=== PATIENT | female | born 1945 | race Caucasian/White ===

== ENCOUNTER 2017-08-12 18:36 | Inpatient (IN) | payer MEDICARE ==
[~2017-08-12] VITALS: Ht 172.7 cm; Wt 82.0 kg
[2017-08-12] MEDS ORDERED: SUCCINYLCHOLINE CHLORIDE 20 MG/ML 10ML VIAL IV ONE ×3 (18:56→19:15)
[2017-08-12] MEDS ORDERED: FUROSEMIDE 40 MG/4 ML VIAL ONE (18:56)
[2017-08-12] MEDS ORDERED: ETOMIDATE (2MG/ML) 20ML VIAL IV ONE ×3 (18:56→19:15)
[2017-08-12] MEDS ORDERED: FUROSEMIDE 40 MG/4 ML VIAL IV ONE (18:56)
[2017-08-12] MEDS ORDERED: NITROGLYCERIN 0.4 MG SL TAB SL ONE ×2 (18:59)
[2017-08-12] MEDS ORDERED: NITROGLYCERIN 50MG/250ML 250 ML IV ONE (19:16)
[2017-08-12] MEDS ORDERED: ENALAPRILAT 1.25 MG/ML-1ML VIAL IV ONE (19:19)
[2017-08-12] MEDS: NOREPINEPHRINE 8 MG/250ML KIT 250 ML IV ONE ×2 (19:20→19:37)
[2017-08-12] MEDS: DOBUTamine 1000MCG/ML 250 ML IV ONE ×2 (19:22→19:26)
[2017-08-12] MEDS: DOBUTamine 1000MCG/ML 250 ML IV SCH (19:26)
[2017-08-12] MEDS: NOREPINEPHRINE 8 MG/250ML KIT 250 ML IV SCH (19:37)
[2017-08-12] MEDS: MIDAZOLAM DRIP 50 mg/50mL 50 ML IV SCH ×2 (20:00→23:37)
[2017-08-12 20:04] LABS: Basophils # (auto) 0.1 uL; Basophils % (auto) 0.4 % (0.0-2.0); Eosinophils # (auto) 0.3 uL; Hemoglobin 17.4 g/dL (12.2-16.2); Lymphocytes % (auto) 30.7 % (10.0-50.0); Monocytes # (auto) 1.3 uL; White Blood Cell 16.3 10^3/uL (4.4-10.8)
[2017-08-12 20:05] LABS: Eosinophils % (auto) 2.1 % (0.0-7.0); Hematocrit 53.9 % (36.0-46.0); Mean Corpuscular Hemoglobin 32.3 pg (28.0-32.0); Mean Corpuscular Hgb Conc. 32.4 g/dL (32.0-36.0); Mean Corpuscular Volume 99.7 fL (80.0-100.0); Monocytes % (auto) 8.1 % (0.0-12.0); Neutrophils # (auto) 9.6 uL; Neutrophils % (auto) 58.7 % (37.0-80.0); Nucleated Red Blood Cells % 0.1 %; Platelet Count (auto) 197 10^3/uL (140-450)
[2017-08-12 20:22] LABS: INR 0.93 (0.9-1.15); Partial Thromboplastin Time 32.3 sec (23.78-33.04)
[2017-08-12 20:33] LABS: Alanine Aminotransferase 57 U/L (13-56); Alkaline Phosphatase 72 U/L (45-117); Anion Gap 14 (5-15); Aspartate Aminotransferase 50 U/L (15-37); BUN/Creatinine Ratio 21.8; Bilirubin, Total 0.4 mg/dL (0.2-1.0); Blood Urea Nitrogen 29 mg/dL (7-18); Calcium 8.7 mg/dL (8.5-10.1); Carbon Dioxide 18 mmol/L (21-32); Chloride 109 mmol/L (98-107); GFR African American 51 mL/min; GFR Non-African American 42 mL/min; Glucose 312 mg/dL (74-106); Sodium 141 mmol/L (136-145)
[2017-08-12 20:34] LABS: Albumin 3.7 g/dL (3.4-5.0); Potassium 5.5 mmol/L (3.5-5.1); Total Protein 8.6 g/dL (6.4-8.2)
[2017-08-12] MEDS ORDERED: IOHEXOL 350 MG/ML 100ML IJ ONE (20:42)
[2017-08-12] MEDS ORDERED: PIPERACILLIN-TAZO 4.5GM 100 ML IV ONE (22:15)
[2017-08-12] MEDS ORDERED: CLINDAMYCIN 900MG IV 50 ML IV ONE (22:15)
[2017-08-12] MEDS ORDERED: SODIUM CHLORIDE 0.9% 1,000 ML IV ONE (22:30)
[2017-08-12] MEDS ORDERED: InsuLIN REG 1unit/0.01ml Soln (100units/ml) IV ONE (23:30)
[2017-08-13] VITALS (13 sets, daily range): BP systolic 99–126; BP diastolic 17–86
[2017-08-13] MEDS: SODIUM CHLORIDE 0.9% 1,000 ML IV SCH ×2 (00:47→20:01)
[2017-08-13] MEDS ORDERED: DEXTROSE (50%) 50ML SYRG IV PRN (01:00)
[2017-08-13] MEDS ORDERED: ALBUTEROL SULF 2.5 MG/0.5ML(0.5%) NEB SOLN NEB PRN (01:00)
[2017-08-13] MEDS ORDERED: ONDANSETRON HCL 4 MG/2 ML VIAL IV PRN (01:00)
[2017-08-13] MEDS ORDERED: NITROGLYCERIN 0.4 MG SL TAB SL PRN (01:00)
[2017-08-13] MEDS ORDERED: VANCOMYCIN PER PHARMACY 0 MG IV SCH (01:00)
[2017-08-13] MEDS ORDERED: VANCOMYCIN 1GM/250ML 250 ML IV ONE (01:30)
[2017-08-13 01:38] LABS: Potassium 5.5 mmol/L (3.5-5.1)
[2017-08-13 01:46] LABS: Lactic Acid w/Reflex 3.5 mmol/L (0.4-2.0)
[2017-08-13] MEDS: PIPERACILLIN-TAZOB 3.375GM 100 ML IV SCH ×3 (06:00→18:20)
[2017-08-13] MEDS: ACCU-CHEK COMFORT CURVE STRIP VI SCH ×3 (06:00→18:20)
[2017-08-13] MEDS: InsuLIN REG 1unit/0.01ml Soln (100units/ml) SC SCH ×3 (06:00→18:20)
[2017-08-13] MEDS: ASPirin 81 mg TAB PO SCH (10:00)
[2017-08-13] MEDS: PANTOPRAZOLE 40 MG/10 ML VIAL IV SCH (10:17)
[2017-08-13] MEDS: ENOXAPARIN SOD 30 MG/0.3 ML SYRINGE SC SCH (10:18)
[2017-08-13] MEDS: MIDAZOLAM DRIP 50 mg/50mL 50 ML IV SCH ×3 (10:30→18:01)
[2017-08-13] MEDS ORDERED: DILTIAZEM HCL 25 MG/5 ML VIAL IV ONE ×3 (11:09→14:15)
[2017-08-13 11:28] LABS: Albumin 2.8 g/dL (3.4-5.0); BUN/Creatinine Ratio 22.6; Bilirubin, Total 0.5 mg/dL (0.2-1.0); Calcium 7.8 mg/dL (8.5-10.1); Potassium 4.4 mmol/L (3.5-5.1); Total Protein 6.1 g/dL (6.4-8.2)
[2017-08-13] MEDS: DOBUTamine 1000MCG/ML 250 ML IV SCH ×2 (12:57→22:36)
[2017-08-13] MEDS ORDERED: AMIODARONE HCL 150 MG in D5W 5% 100 ML IV ONE (14:30)
[2017-08-13] MEDS ORDERED: AMIODARONE HCL 900 MG in DEXTROSE 500 ML IV SCH (15:04)
[2017-08-13] MEDS ORDERED: ACETAMINOPHEN 650 MG RECT SUPP PR ONE (17:14)
[2017-08-13] MEDS: ACETAMINOPHEN 325 MG TAB PO PRN (19:02)
[2017-08-13 20:20] LABS: Basophils # (auto) 0.1 uL; Basophils % (auto) 0.6 % (0.0-2.0); Eosinophils # (auto) 0 uL; Eosinophils % (auto) 0.1 % (0.0-7.0); Hematocrit 37.4 % (36.0-46.0); Hemoglobin 12.5 g/dL (12.2-16.2); Lymphocytes # (auto) 1.3 uL; Mean Corpuscular Hemoglobin 31.8 pg (28.0-32.0); Mean Corpuscular Hgb Conc. 33.3 g/dL (32.0-36.0); Mean Corpuscular Volume 95.3 fL (80.0-100.0); Monocytes # (auto) 1.3 uL; Monocytes % (auto) 7.3 % (0.0-12.0); Neutrophils # (auto) 15.4 uL; Nucleated Red Blood Cells % 0.1 %; Platelet Count (auto) 136 10^3/uL (140-450); Red Blood Cells 3.92 10^6/uL (4.0-5.20); Red Cell Distribution Width 13.2 % (11.8-14.3); White Blood Cell 18.1 10^3/uL (4.4-10.8)
[2017-08-13 20:38] LABS: Albumin 2.6 g/dL (3.4-5.0); BUN/Creatinine Ratio 22.1; Bilirubin, Total 0.4 mg/dL (0.2-1.0); Calcium 7.3 mg/dL (8.5-10.1); Potassium 4.2 mmol/L (3.5-5.1); Total Protein 5.7 g/dL (6.4-8.2)
[2017-08-13] MEDS ORDERED: IBUPROFEN 600 MG TAB PO ONE (22:15)
[2017-08-13] MEDS: AMIODARONE HCL 900 MG in DEXTROSE 500 ML IV SCH (22:37)
[2017-08-13] MEDS: NOREPINEPHRINE 8 MG/250ML KIT 250 ML IV SCH (23:38)
[2017-08-13 23:53] LABS: Urine Bacteria NONE SEEN /hpf (None Seen); Urine Blood 2+ /uL (Negative); Urine Specific Gravity 1.048 (1.001-1.035); Urine WBC 2 /hpf (0 - 5)
[2017-08-14] VITALS (12 sets, daily range): BP systolic 104–149; BP diastolic 63–97
[2017-08-14] MEDS: ACCU-CHEK COMFORT CURVE STRIP VI SCH ×4 (00:06→17:47)
[2017-08-14] MEDS: PIPERACILLIN-TAZOB 3.375GM 100 ML IV SCH ×4 (00:06→17:55)
[2017-08-14] MEDS: InsuLIN REG 1unit/0.01ml Soln (100units/ml) SC SCH ×4 (00:14→17:48)
[2017-08-14] MEDS: ACETAMINOPHEN 325 MG TAB PO PRN ×2 (00:46→14:19)
[2017-08-14] MEDS ORDERED: VANCOMYCIN 1GM/250ML 250 ML IV SCH (02:00)
[2017-08-14] MEDS ORDERED: AMIODARONE HCL 75 MG in D5W 5% 100 ML IV ONE ×2 (03:15→23:15)
[2017-08-14] MEDS ORDERED: AMIODARONE HCL (50 MG/ ML) 3 ML VIAL IV ONE ×2 (03:20→23:01)
[2017-08-14] MEDS: IBUPROFEN 800 MG TAB PO ONE ×2 (03:29→04:00)
[2017-08-14] MEDS ORDERED: IBUPROFEN 100MG/5ML ORAL SUSP 100 MG/5 ML UD ONE (03:51)
[2017-08-14] MEDS ORDERED: IBUPROFEN 100MG/5ML ORAL SUSP 100 MG/5 ML UD GT ONE (04:45)
[2017-08-14 06:16] LABS: Albumin 2.4 g/dL (3.4-5.0); BUN/Creatinine Ratio 21.5; Bilirubin, Total 0.6 mg/dL (0.2-1.0); Calcium 7.2 mg/dL (8.5-10.1); Potassium 3.4 mmol/L (3.5-5.1); Total Protein 5.6 g/dL (6.4-8.2)
[2017-08-14 06:24] LABS: Basophils # (auto) 0 uL; Basophils % (auto) 0.3 % (0.0-2.0); Eosinophils # (auto) 0 uL; Eosinophils % (auto) 0.1 % (0.0-7.0); Hematocrit 37.3 % (36.0-46.0); Hemoglobin 12.3 g/dL (12.2-16.2); Lymphocytes # (auto) 1.7 uL; Mean Corpuscular Hgb Conc. 32.9 g/dL (32.0-36.0); Mean Corpuscular Volume 97.1 fL (80.0-100.0); Monocytes # (auto) 1.7 uL; Monocytes % (auto) 10.2 % (0.0-12.0); Neutrophils # (auto) 13.3 uL; Neutrophils % (auto) 79.4 % (37.0-80.0); Platelet Count (auto) 116 10^3/uL (140-450); Red Blood Cells 3.84 10^6/uL (4.0-5.20); Red Cell Distribution Width 13.3 % (11.8-14.3); White Blood Cell 16.7 10^3/uL (4.4-10.8)
[2017-08-14] MEDS: MIDAZOLAM DRIP 50 mg/50mL 50 ML IV SCH ×3 (08:55→19:15)
[2017-08-14] MEDS: PANTOPRAZOLE 40 MG/10 ML VIAL IV SCH (09:25)
[2017-08-14] MEDS: ENOXAPARIN SOD 30 MG/0.3 ML SYRINGE SC SCH (09:25)
[2017-08-14] MEDS: ASPirin 81 mg TAB PO SCH (09:26)
[2017-08-14] MEDS: SODIUM CHLORIDE 0.9% 1,000 ML IV SCH (10:07)
[2017-08-14] MEDS ORDERED: METOPROLOL TARTRATE 1MG/1ML-5ML VIAL IV ONE (13:48)
[2017-08-14] MEDS ORDERED: ACETAMINOPHEN 650 mg PER 20 mL UD ONE (14:12)
[2017-08-14 14:47] LABS: Urine Bacteria NONE SEEN /hpf (None Seen); Urine Blood 2+ /uL (Negative); Urine Mucus FEW (None Seen); Urine Specific Gravity 1.024 (1.001-1.035); Urine WBC 5 /hpf (0 - 5)
[2017-08-14] MEDS: DOBUTamine 1000MCG/ML 250 ML IV SCH ×2 (16:53→21:08)
[2017-08-14] MEDS: METOPROLOL TARTRATE 1MG/1ML-5ML VIAL IV PRN ×2 (16:54→21:07)
[2017-08-14] MEDS: AMIODARONE HCL 900 MG in DEXTROSE 500 ML IV SCH (17:13)
[2017-08-14] MEDS: NOREPINEPHRINE 8 MG/250ML KIT 250 ML IV SCH (22:26)
[2017-08-15] VITALS (13 sets, daily range): BP systolic 95–162; BP diastolic 54–96
[2017-08-15] MEDS: SODIUM CHLORIDE 0.9% 1,000 ML IV SCH (03:07)
[2017-08-15] MEDS: MORPHINE SULF(PF) 0.5MG/ML 10ML VIAL IV PRN (03:27)
[2017-08-15] MEDS ORDERED: ACETAMINOPHEN 650 mg PER 20 mL UD PO ONE (03:30)
[2017-08-15 05:40] LABS: Basophils # (auto) 0.1 uL; Basophils % (auto) 0.6 % (0.0-2.0); Eosinophils # (auto) 0 uL; Eosinophils % (auto) 0.1 % (0.0-7.0); Hematocrit 36.2 % (36.0-46.0); Hemoglobin 12.2 g/dL (12.2-16.2); Lymphocytes # (auto) 1.2 uL; Lymphocytes % (auto) 6.8 % (10.0-50.0); Mean Corpuscular Hemoglobin 32.2 pg (28.0-32.0); Mean Corpuscular Hgb Conc. 33.7 g/dL (32.0-36.0); Mean Corpuscular Volume 95.5 fL (80.0-100.0); Monocytes # (auto) 1.7 uL; Neutrophils # (auto) 14.1 uL; Neutrophils % (auto) 82.5 % (37.0-80.0); Platelet Count (auto) 113 10^3/uL (140-450); Red Blood Cells 3.79 10^6/uL (4.0-5.20); Red Cell Distribution Width 13.3 % (11.8-14.3)
[2017-08-15] MEDS: PIPERACILLIN-TAZOB 3.375GM 100 ML IV SCH ×4 (05:57→17:47)
[2017-08-15 06:02] LABS: Albumin 2.3 g/dL (3.4-5.0); BUN/Creatinine Ratio 14.1; Calcium 7.3 mg/dL (8.5-10.1); Potassium 3.4 mmol/L (3.5-5.1)
[2017-08-15] MEDS: ACCU-CHEK COMFORT CURVE STRIP VI SCH ×4 (06:03→17:47)
[2017-08-15 06:05] LABS: Bilirubin, Total 0.7 mg/dL (0.2-1.0); Total Protein 5.8 g/dL (6.4-8.2)
[2017-08-15] MEDS: InsuLIN REG 1unit/0.01ml Soln (100units/ml) SC SCH ×4 (06:08→17:47)
[2017-08-15] MEDS: DOBUTamine 1000MCG/ML 250 ML IV SCH (06:27)
[2017-08-15] MEDS: VANCOMYCIN 1GM/250ML 250 ML IV SCH (09:13)
[2017-08-15] MEDS: ACETAMINOPHEN 325 MG TAB PO PRN ×2 (09:35→16:20)
[2017-08-15] MEDS: ASPirin 81 mg TAB PO SCH (09:35)
[2017-08-15] MEDS: PANTOPRAZOLE 40 MG/10 ML VIAL IV SCH (09:50)
[2017-08-15] MEDS: ENOXAPARIN SOD 30 MG/0.3 ML SYRINGE SC SCH (09:51)
[2017-08-15] MEDS ORDERED: Diabetisource AC 1 Liter GT SCH (11:00)
[2017-08-15] MEDS ORDERED: INSULIN LANTUS (GLARGINE) 1 /0.01ml (100units/ml) SC ONE (11:00)
[2017-08-15] MEDS ORDERED: FUROSEMIDE 40 MG/4 ML VIAL IV ONE (11:00)
[2017-08-15] MEDS ORDERED: METOPROLOL TARTRATE 50 MG TAB PO ONE (11:00)
[2017-08-15] MEDS ORDERED: MICAFUNGIN SODIUM 100 MG in SODIUM CHL 0.9% 100 ML IV ONE (11:00)
[2017-08-15] MEDS ORDERED: POTASSIUM CHL 10% (20 MEQ/15ML) 15ml ORAL SOLN GT ONE (11:00)
[2017-08-15] MEDS ORDERED: ENOXAPARIN SOD 30 MG/0.3 ML SYRINGE SC ONE (11:15)
[2017-08-15] MEDS: NOREPINEPHRINE 8 MG/250ML KIT 250 ML IV SCH (17:18)
[2017-08-15] MEDS: METOPROLOL TARTRATE 50 MG TAB PO SCH (21:52)
[2017-08-15] MEDS: INSULIN LANTUS (GLARGINE) 1 /0.01ml (100units/ml) SC SCH (21:52)
[2017-08-15] MEDS: ENOXAPARIN SOD 60 MG/0.6 ML SYRINGE SC SCH (21:56)
[2017-08-15] MEDS: MIDAZOLAM DRIP 50 mg/50mL 50 ML IV SCH (21:57)
[2017-08-15] MEDS: AMIODARONE HCL 900 MG in DEXTROSE 500 ML IV SCH (22:30)
[2017-08-16] VITALS (24 sets, daily range): BP systolic 91–141; BP diastolic 54–117
[2017-08-16] MEDS: ACETAMINOPHEN 325 MG TAB PO PRN ×3 (00:56→14:02)
[2017-08-16] MEDS: AMIODARONE HCL 900 MG in DEXTROSE 500 ML IV SCH (02:00)
[2017-08-16] MEDS: VANCOMYCIN 1GM/250ML 250 ML IV SCH ×2 (03:00→21:00)
[2017-08-16] MEDS: MIDAZOLAM DRIP 50 mg/50mL 50 ML IV SCH ×3 (04:22→18:29)
[2017-08-16] MEDS: ACCU-CHEK COMFORT CURVE STRIP VI SCH ×4 (06:00→17:37)
[2017-08-16] MEDS: PIPERACILLIN-TAZOB 3.375GM 100 ML IV SCH ×4 (06:00→17:37)
[2017-08-16] MEDS: InsuLIN REG 1unit/0.01ml Soln (100units/ml) SC SCH ×4 (07:09→17:43)
[2017-08-16 08:07] LABS: Calcium 7.3 mg/dL (8.5-10.1); Potassium 3.5 mmol/L (3.5-5.1)
[2017-08-16 08:10] LABS: Bilirubin, Total 0.5 mg/dL (0.2-1.0); Total Protein 5.6 g/dL (6.4-8.2)
[2017-08-16 08:15] LABS: Basophils # (auto) 0.1 uL; Basophils % (auto) 0.4 % (0.0-2.0); Eosinophils # (auto) 0 uL; Eosinophils % (auto) 0.3 % (0.0-7.0); Hematocrit 35.1 % (36.0-46.0); Hemoglobin 11.7 g/dL (12.2-16.2); Lymphocytes # (auto) 0.6 uL; Mean Corpuscular Hemoglobin 32.1 pg (28.0-32.0); Mean Corpuscular Hgb Conc. 33.2 g/dL (32.0-36.0); Mean Corpuscular Volume 96.5 fL (80.0-100.0); Monocytes # (auto) 1.2 uL; Neutrophils # (auto) 12.9 uL; Neutrophils % (auto) 87.3 % (37.0-80.0); Platelet Count (auto) 126 10^3/uL (140-450); Red Blood Cells 3.64 10^6/uL (4.0-5.20); Red Cell Distribution Width 13.4 % (11.8-14.3); White Blood Cell 14.7 10^3/uL (4.4-10.8)
[2017-08-16] MEDS: ASPirin 81 mg TAB PO SCH (09:47)
[2017-08-16] MEDS: PANTOPRAZOLE 40 MG/10 ML VIAL IV SCH (09:47)
[2017-08-16] MEDS: ENOXAPARIN SOD 60 MG/0.6 ML SYRINGE SC SCH ×2 (09:47→22:00)
[2017-08-16] MEDS: METOPROLOL TARTRATE 50 MG TAB PO SCH ×2 (09:48→22:00)
[2017-08-16] MEDS: POTASSIUM CHL 10% (20 MEQ/15ML) 15ml ORAL SOLN PO SCH (09:48)
[2017-08-16] MEDS: FUROSEMIDE 40 MG/4 ML VIAL IV SCH (10:05)
[2017-08-16] MEDS: MICAFUNGIN SODIUM 100 MG in SODIUM CHL 0.9% 100 ML IV SCH (10:32)
[2017-08-16] MEDS: METOPROLOL TARTRATE 1MG/1ML-5ML VIAL IV PRN (14:00)
[2017-08-16] MEDS: MORPHINE SULF(PF) 0.5MG/ML 10ML VIAL IV PRN (14:22)
[2017-08-16] MEDS: fentaNYL Drip 2500mCg/250mlNS 250 ML IV SCH (16:14)
[2017-08-16] MEDS: NOREPINEPHRINE 8 MG/250ML KIT 250 ML IV SCH (17:15)
[2017-08-16 20:05] LABS: Hematocrit 32.3 % (36.0-46.0); Hemoglobin 10.9 g/dL (12.2-16.2)
[2017-08-16] MEDS: INSULIN LANTUS (GLARGINE) 1 /0.01ml (100units/ml) SC SCH (22:00)
[2017-08-17] VITALS (103 sets, daily range): BP systolic 102–179; BP diastolic 52–119
[2017-08-17] MEDS: MIDAZOLAM DRIP 50 mg/50mL 50 ML IV SCH ×3 (00:54→19:20)
[2017-08-17] MEDS: PIPERACILLIN-TAZOB 3.375GM 100 ML IV SCH ×4 (06:11→18:55)
[2017-08-17] MEDS: InsuLIN REG 1unit/0.01ml Soln (100units/ml) SC SCH ×4 (06:11→18:22)
[2017-08-17] MEDS: ACCU-CHEK COMFORT CURVE STRIP VI SCH ×4 (06:12→18:19)
[2017-08-17 09:49] LABS: Basophils # (auto) 0.1 uL; Basophils % (auto) 0.9 % (0.0-2.0); Eosinophils # (auto) 0.3 uL; Eosinophils % (auto) 2.8 % (0.0-7.0); Lymphocytes # (auto) 1.2 uL; Lymphocytes % (auto) 10.7 % (10.0-50.0); Mean Corpuscular Hemoglobin 31.4 pg (28.0-32.0); Mean Corpuscular Hgb Conc. 32.3 g/dL (32.0-36.0); Mean Corpuscular Volume 97.1 fL (80.0-100.0); Monocytes # (auto) 1.2 uL; Monocytes % (auto) 10.9 % (0.0-12.0); Neutrophils # (auto) 8.3 uL; Neutrophils % (auto) 74.7 % (37.0-80.0); Nucleated Red Blood Cells % 0.1 %; Platelet Count (auto) 116 10^3/uL (140-450); Red Cell Distribution Width 13.6 % (11.8-14.3); White Blood Cell 11.2 10^3/uL (4.4-10.8)
[2017-08-17 09:56] LABS: BUN/Creatinine Ratio 18.5; Calcium 7.2 mg/dL (8.5-10.1); Potassium 3.7 mmol/L (3.5-5.1)
[2017-08-17] MEDS: FUROSEMIDE 40 MG/4 ML VIAL IV SCH (10:26)
[2017-08-17] MEDS: PANTOPRAZOLE 40 MG/10 ML VIAL IV SCH (10:27)
[2017-08-17] MEDS: ASPirin 81 mg TAB PO SCH (10:27)
[2017-08-17] MEDS: ENOXAPARIN SOD 60 MG/0.6 ML SYRINGE SC SCH ×2 (10:28→22:00)
[2017-08-17] MEDS: POTASSIUM CHL 10% (20 MEQ/15ML) 15ml ORAL SOLN PO SCH (10:28)
[2017-08-17] MEDS: METOPROLOL TARTRATE 50 MG TAB PO SCH ×2 (10:28→22:00)
[2017-08-17] MEDS: MICAFUNGIN SODIUM 100 MG in SODIUM CHL 0.9% 100 ML IV SCH (10:29)
[2017-08-17] MEDS: ACETAMINOPHEN 325 MG TAB PO PRN (12:44)
[2017-08-17] MEDS: fentaNYL Drip 2500mCg/250mlNS 250 ML IV SCH (15:19)
[2017-08-17] MEDS: NOREPINEPHRINE 8 MG/250ML KIT 250 ML IV SCH (17:15)
[2017-08-17] MEDS: VANCOMYCIN 1GM/250ML 250 ML IV SCH (17:16)
[2017-08-17] MEDS: INSULIN LANTUS (GLARGINE) 1 /0.01ml (100units/ml) SC SCH (22:00)
[2017-08-18] VITALS (90 sets, daily range): BP systolic 125–202; BP diastolic 58–121
[2017-08-18 03:31] LABS: Basophils # (auto) 0.1 uL; Basophils % (auto) 0.8 % (0.0-2.0); Eosinophils # (auto) 0.4 uL; Eosinophils % (auto) 3.7 % (0.0-7.0); Hematocrit 33.6 % (36.0-46.0); Hemoglobin 11.2 g/dL (12.2-16.2); Lymphocytes # (auto) 0.7 uL; Lymphocytes % (auto) 6.8 % (10.0-50.0); Mean Corpuscular Hemoglobin 31.9 pg (28.0-32.0); Mean Corpuscular Hgb Conc. 33.3 g/dL (32.0-36.0); Mean Corpuscular Volume 95.8 fL (80.0-100.0); Monocytes % (auto) 9.7 % (0.0-12.0); Neutrophils # (auto) 8.4 uL; Platelet Count (auto) 138 10^3/uL (140-450); Red Blood Cells 3.51 10^6/uL (4.0-5.20); Red Cell Distribution Width 13.1 % (11.8-14.3); White Blood Cell 10.6 10^3/uL (4.4-10.8)
[2017-08-18 03:48] LABS: Albumin 1.8 g/dL (3.4-5.0); Calcium 7.3 mg/dL (8.5-10.1); Potassium 3.8 mmol/L (3.5-5.1)
[2017-08-18 03:50] LABS: BUN/Creatinine Ratio 19.2
[2017-08-18 03:53] LABS: Bilirubin, Total 0.5 mg/dL (0.2-1.0); Total Protein 5.7 g/dL (6.4-8.2)
[2017-08-18] MEDS: PIPERACILLIN-TAZOB 3.375GM 100 ML IV SCH ×4 (06:11→18:03)
[2017-08-18] MEDS: ACCU-CHEK COMFORT CURVE STRIP VI SCH ×6 (06:11→22:00)
[2017-08-18] MEDS: InsuLIN REG 1unit/0.01ml Soln (100units/ml) SC SCH ×6 (06:12→22:00)
[2017-08-18] MEDS: AMIODARONE HCL 900 MG in DEXTROSE 500 ML IV SCH ×2 (08:17→21:04)
[2017-08-18] MEDS: ACETAMINOPHEN 325 MG TAB PO PRN (08:26)
[2017-08-18] MEDS: MIDAZOLAM DRIP 50 mg/50mL 50 ML IV SCH ×2 (08:42→21:49)
[2017-08-18] MEDS ORDERED: DEXTROSE (50%) 50ML SYRG IV PRN (08:45)
[2017-08-18] MEDS: POTASSIUM CHL 10% (20 MEQ/15ML) 15ml ORAL SOLN PO SCH (10:40)
[2017-08-18] MEDS: PANTOPRAZOLE 40 MG/10 ML VIAL IV SCH (10:40)
[2017-08-18] MEDS: ASPirin 81 mg TAB PO SCH (10:40)
[2017-08-18] MEDS: FUROSEMIDE 40 MG/4 ML VIAL IV SCH (10:41)
[2017-08-18] MEDS: ENOXAPARIN SOD 60 MG/0.6 ML SYRINGE SC SCH ×2 (10:41→22:00)
[2017-08-18] MEDS: METOPROLOL TARTRATE 50 MG TAB PO SCH ×2 (10:41→22:00)
[2017-08-18] MEDS: VANCOMYCIN 1GM/250ML 250 ML IV SCH (10:44)
[2017-08-18] MEDS: MICAFUNGIN SODIUM 100 MG in SODIUM CHL 0.9% 100 ML IV SCH (10:59)
[2017-08-18] MEDS: fentaNYL Drip 2500mCg/250mlNS 250 ML IV SCH (15:19)
[2017-08-18] MEDS: NOREPINEPHRINE 8 MG/250ML KIT 250 ML IV SCH (17:15)
[2017-08-18] MEDS ORDERED: METOPROLOL TARTRATE 50 MG TAB PO ONE (18:30)
[2017-08-18] MEDS ORDERED: POTASSIUM CHL 10% (20 MEQ/15ML) 15ml ORAL SOLN PO ONE (19:00)
[2017-08-18] MEDS: MAGNESIUM SULFATE 1GM/100ML 100 ML IV SCH (20:00)
[2017-08-18] MEDS: INSULIN LANTUS (GLARGINE) 1 /0.01ml (100units/ml) SC SCH (22:00)
[2017-08-19] VITALS (99 sets, daily range): BP systolic 115–180; BP diastolic 55–103
[2017-08-19] MEDS: InsuLIN REG 1unit/0.01ml Soln (100units/ml) SC SCH ×4 (02:00→13:57)
[2017-08-19] MEDS: ACCU-CHEK COMFORT CURVE STRIP VI SCH ×9 (02:00→22:30)
[2017-08-19] MEDS: VANCOMYCIN 1GM/250ML 250 ML IV SCH ×2 (03:00→21:00)
[2017-08-19 03:48] LABS: Basophils # (auto) 0.1 uL; Basophils % (auto) 0.5 % (0.0-2.0); Eosinophils # (auto) 0.3 uL; Eosinophils % (auto) 2.8 % (0.0-7.0); Hematocrit 33.4 % (36.0-46.0); Hemoglobin 11.2 g/dL (12.2-16.2); Lymphocytes # (auto) 0.9 uL; Lymphocytes % (auto) 7.4 % (10.0-50.0); Mean Corpuscular Hgb Conc. 33.6 g/dL (32.0-36.0); Mean Corpuscular Volume 95.1 fL (80.0-100.0); Monocytes # (auto) 1.3 uL; Neutrophils # (auto) 9.4 uL; Neutrophils % (auto) 78.3 % (37.0-80.0); Platelet Count (auto) 174 10^3/uL (140-450); Red Blood Cells 3.51 10^6/uL (4.0-5.20)
[2017-08-19 04:06] LABS: Albumin 1.8 g/dL (3.4-5.0); BUN/Creatinine Ratio 20.8; Bilirubin, Total 0.4 mg/dL (0.2-1.0); Calcium 7.8 mg/dL (8.5-10.1); Potassium 4.5 mmol/L (3.5-5.1); Total Protein 5.7 g/dL (6.4-8.2)
[2017-08-19] MEDS: PIPERACILLIN-TAZOB 3.375GM 100 ML IV SCH ×4 (06:13→18:40)
[2017-08-19] MEDS: METOPROLOL TARTRATE 50 MG TAB PO SCH ×3 (09:31→23:00)
[2017-08-19] MEDS: POTASSIUM CHL 10% (20 MEQ/15ML) 15ml ORAL SOLN PO SCH (09:31)
[2017-08-19] MEDS: FUROSEMIDE 40 MG/4 ML VIAL IV SCH (09:31)
[2017-08-19] MEDS: PANTOPRAZOLE 40 MG/10 ML VIAL IV SCH (09:31)
[2017-08-19] MEDS: MICAFUNGIN SODIUM 100 MG in SODIUM CHL 0.9% 100 ML IV SCH (09:32)
[2017-08-19] MEDS: ASPirin 81 mg TAB PO SCH (09:32)
[2017-08-19] MEDS: ENOXAPARIN SOD 60 MG/0.6 ML SYRINGE SC SCH ×2 (10:07→22:00)
[2017-08-19] MEDS: MIDAZOLAM DRIP 50 mg/50mL 50 ML IV SCH ×2 (10:41→21:30)
[2017-08-19] MEDS: fentaNYL Drip 2500mCg/250mlNS 250 ML IV SCH (13:18)
[2017-08-19] MEDS: AMIODARONE HCL 900 MG in DEXTROSE 500 ML IV SCH (13:19)
[2017-08-19] MEDS ORDERED: InsuLIN R (HUMAN) 100 UNITS in SODIUM CHL 0.9% 99 ML IV SCH (15:39)
[2017-08-19] MEDS ORDERED: DEXTROSE (50%) 50ML SYRG IV PRN (15:45)
[2017-08-19] MEDS ORDERED: METOPROLOL TARTRATE 50 MG TAB PO ONE (16:15)
[2017-08-19] MEDS: NOREPINEPHRINE 8 MG/250ML KIT 250 ML IV SCH (16:54)
[2017-08-19] MEDS ORDERED: AMIODARONE HCL 900 MG in DEXTROSE 500 ML IV ONE (17:54)
[2017-08-19] MEDS: ACETAMINOPHEN 325 MG TAB PO PRN (19:42)
[2017-08-20] VITALS (97 sets, daily range): BP systolic 117–180; BP diastolic 56–113
[2017-08-20] MEDS: ACCU-CHEK COMFORT CURVE STRIP VI SCH ×17 (01:30→23:48)
[2017-08-20] MEDS: METOPROLOL TARTRATE 1MG/1ML-5ML VIAL IV PRN (04:00)
[2017-08-20 04:02] LABS: Basophils # (auto) 0 uL; Basophils % (auto) 0.3 % (0.0-2.0); Eosinophils # (auto) 0.4 uL; Eosinophils % (auto) 2.7 % (0.0-7.0); Hematocrit 35.2 % (36.0-46.0); Hemoglobin 11.5 g/dL (12.2-16.2); Lymphocytes # (auto) 1.2 uL; Lymphocytes % (auto) 9.1 % (10.0-50.0); Mean Corpuscular Hemoglobin 31.3 pg (28.0-32.0); Mean Corpuscular Hgb Conc. 32.8 g/dL (32.0-36.0); Mean Corpuscular Volume 95.4 fL (80.0-100.0); Monocytes # (auto) 1.5 uL; Neutrophils # (auto) 10.4 uL; Neutrophils % (auto) 76.9 % (37.0-80.0); Platelet Count (auto) 210 10^3/uL (140-450); Red Blood Cells 3.69 10^6/uL (4.0-5.20); White Blood Cell 13.5 10^3/uL (4.4-10.8)
[2017-08-20 04:05] LABS: Albumin 1.6 g/dL (3.4-5.0); BUN/Creatinine Ratio 21.5; Calcium 7.6 mg/dL (8.5-10.1); Potassium 4.5 mmol/L (3.5-5.1)
[2017-08-20 04:08] LABS: Bilirubin, Total 0.4 mg/dL (0.2-1.0); Total Protein 5.8 g/dL (6.4-8.2)
[2017-08-20] MEDS: PIPERACILLIN-TAZOB 3.375GM 100 ML IV SCH ×5 (06:00→23:45)
[2017-08-20] MEDS ORDERED: InsuLIN R (HUMAN) 100 UNITS in SODIUM CHL 0.9% 99 ML IV SCH ×2 (07:44→08:54)
[2017-08-20] MEDS: ACETAMINOPHEN 325 MG TAB PO PRN ×2 (08:03→15:40)
[2017-08-20] MEDS: AMIODARONE HCL 900 MG in DEXTROSE 500 ML IV SCH ×2 (08:54→20:11)
[2017-08-20] MEDS ORDERED: METOPROLOL TARTRATE 50 MG TAB PO ONE (10:00)
[2017-08-20] MEDS: PANTOPRAZOLE 40 MG/10 ML VIAL IV SCH (10:02)
[2017-08-20] MEDS: ASPirin 81 mg TAB PO SCH (10:02)
[2017-08-20] MEDS: MICAFUNGIN SODIUM 100 MG in SODIUM CHL 0.9% 100 ML IV SCH (10:03)
[2017-08-20] MEDS: FUROSEMIDE 40 MG/4 ML VIAL IV SCH (10:03)
[2017-08-20] MEDS: POTASSIUM CHL 10% (20 MEQ/15ML) 15ml ORAL SOLN PO SCH (10:04)
[2017-08-20] MEDS: ENOXAPARIN SOD 80 MG/0.8ML SYRINGE SC SCH ×2 (10:04→22:06)
[2017-08-20] MEDS: LINEZOLID 600MG/300ML 300 ML IV SCH ×2 (12:28→22:05)
[2017-08-20] MEDS: InsuLIN R (HUMAN) 100 UNITS in SODIUM CHL 0.9% 99 ML IV SCH (15:46)
[2017-08-20] MEDS: NOREPINEPHRINE 8 MG/250ML KIT 250 ML IV SCH (17:15)
[2017-08-20] MEDS: METOPROLOL TARTRATE 50 MG TAB PO SCH (22:06)
[2017-08-20] MEDS ORDERED: FUROSEMIDE INJECTION 10 ML ONE (23:10)
[2017-08-20] MEDS ORDERED: InsuLIN REG 1unit/0.01ml Soln (100units/ml) ONE (23:13)
[2017-08-21] VITALS (95 sets, daily range): BP systolic 112–194; BP diastolic 58–115
[2017-08-21] MEDS: METOPROLOL TARTRATE 1MG/1ML-5ML VIAL IV PRN ×2 (01:32→06:33)
[2017-08-21] MEDS: ACCU-CHEK COMFORT CURVE STRIP VI SCH ×13 (01:35→23:09)
[2017-08-21 03:45] LABS: Basophils # (auto) 0.1 uL; Basophils % (auto) 0.4 % (0.0-2.0); Eosinophils # (auto) 0.2 uL; Eosinophils % (auto) 1.1 % (0.0-7.0); Hematocrit 35.6 % (36.0-46.0); Hemoglobin 11.7 g/dL (12.2-16.2); Lymphocytes # (auto) 1.3 uL; Lymphocytes % (auto) 7.1 % (10.0-50.0); Mean Corpuscular Hgb Conc. 32.9 g/dL (32.0-36.0); Mean Corpuscular Volume 94.2 fL (80.0-100.0); Monocytes # (auto) 1.9 uL; Neutrophils % (auto) 81.4 % (37.0-80.0); Platelet Count (auto) 272 10^3/uL (140-450); Red Blood Cells 3.78 10^6/uL (4.0-5.20); Red Cell Distribution Width 12.9 % (11.8-14.3); White Blood Cell 18.4 10^3/uL (4.4-10.8)
[2017-08-21 04:03] LABS: Albumin 1.8 g/dL (3.4-5.0); BUN/Creatinine Ratio 23.7; Bilirubin, Total 0.3 mg/dL (0.2-1.0); Calcium 7.9 mg/dL (8.5-10.1); Total Protein 6.2 g/dL (6.4-8.2)
[2017-08-21] MEDS: PIPERACILLIN-TAZOB 3.375GM 100 ML IV SCH ×4 (05:43→23:09)
[2017-08-21] MEDS: PANTOPRAZOLE 40 MG/10 ML VIAL IV SCH (10:17)
[2017-08-21] MEDS: ASPirin 81 mg TAB PO SCH (10:17)
[2017-08-21] MEDS: ENOXAPARIN SOD 80 MG/0.8ML SYRINGE SC SCH ×2 (10:17→21:56)
[2017-08-21] MEDS: METOPROLOL TARTRATE 50 MG TAB PO SCH ×2 (10:18→21:56)
[2017-08-21] MEDS: LINEZOLID 600MG/300ML 300 ML IV SCH ×2 (10:18→21:56)
[2017-08-21] MEDS: fentaNYL Drip 2500mCg/250mlNS 250 ML IV SCH ×2 (10:19→15:19)
[2017-08-21] MEDS: MICAFUNGIN SODIUM 100 MG in SODIUM CHL 0.9% 100 ML IV SCH (11:52)
[2017-08-21] MEDS: InsuLIN R (HUMAN) 100 UNITS in SODIUM CHL 0.9% 99 ML IV SCH (14:50)
[2017-08-21] MEDS ORDERED: INSULIN LANTUS (GLARGINE) 1 /0.01ml (100units/ml) SC ONE (15:00)
[2017-08-21] MEDS ORDERED: DEXTROSE (50%) 50ML SYRG IV PRN (15:00)
[2017-08-21] MEDS: NOREPINEPHRINE 8 MG/250ML KIT 250 ML IV SCH (17:15)
[2017-08-21] MEDS ORDERED: DIGOXIN (250MCG/ML) 2 ML AMPULE IV ONE (17:45)
[2017-08-21] MEDS: AMIODARONE HCL 200 MG TAB PO SCH (17:51)
[2017-08-21] MEDS: InsuLIN REG 1unit/0.01ml Soln (100units/ml) SC SCH ×2 (18:03→23:16)
[2017-08-21] MEDS: MIDAZOLAM DRIP 50 mg/50mL 50 ML IV SCH (18:03)
[2017-08-21] MEDS: MORPHINE SULF(PF) 0.5MG/ML 10ML VIAL IV PRN (20:27)
[2017-08-21] MEDS ORDERED: INSULIN LANTUS (GLARGINE) 1 /0.01ml (100units/ml) SC SCH (22:00)
[2017-08-21] MEDS: AMIODARONE HCL 900 MG in DEXTROSE 500 ML IV SCH (23:18)
[2017-08-22] VITALS (79 sets, daily range): BP systolic 94–201; BP diastolic 51–120
[2017-08-22 03:30] LABS: Hematocrit 33.9 % (36.0-46.0); Mean Corpuscular Hemoglobin 31.1 pg (28.0-32.0); Mean Corpuscular Hgb Conc. 32.4 g/dL (32.0-36.0); Mean Corpuscular Volume 96.2 fL (80.0-100.0); Platelet Count (auto) 289 10^3/uL (140-450); Red Blood Cells 3.53 10^6/uL (4.0-5.20); Red Cell Distribution Width 12.9 % (11.8-14.3); White Blood Cell 16.5 10^3/uL (4.4-10.8)
[2017-08-22 03:31] LABS: Band Neutrophils % (manual) 0; Basophils % (manual) 0 (0.0-2.0); Blast Cells 0; Eosinophils % (manual) 0 (0-7); Metamyelocytes % 0; Myelocytes % 0; Promyelocytes % 0; Reactive Lymphocytes 0
[2017-08-22 03:50] LABS: BUN/Creatinine Ratio 22.7; Calcium 7.4 mg/dL (8.5-10.1); Potassium 4.5 mmol/L (3.5-5.1)
[2017-08-22 04:42] LABS: Lymphocytes % (manual) 8 (10.0-50.0); Monocytes % (manual) 9 (0-12)
[2017-08-22 04:50] LABS: INR 0.93 (0.9-1.15); Partial Thromboplastin Time 31.5 sec (23.78-33.04)
[2017-08-22] MEDS: PIPERACILLIN-TAZOB 3.375GM 100 ML IV SCH ×3 (05:47→17:42)
[2017-08-22] MEDS: ACCU-CHEK COMFORT CURVE STRIP VI SCH ×3 (05:47→17:41)
[2017-08-22] MEDS: MORPHINE SULF(PF) 0.5MG/ML 10ML VIAL IV PRN (05:48)
[2017-08-22] MEDS: InsuLIN REG 1unit/0.01ml Soln (100units/ml) SC SCH ×3 (05:48→17:43)
[2017-08-22] MEDS: METOPROLOL TARTRATE 1MG/1ML-5ML VIAL IV PRN ×2 (06:34→16:45)
[2017-08-22] MEDS: fentaNYL Drip 2500mCg/250mlNS 250 ML IV SCH (06:34)
[2017-08-22] MEDS ORDERED: DIGOXIN 0.125 MG TAB PO SCH (10:00)
[2017-08-22] MEDS: MICAFUNGIN SODIUM 100 MG in SODIUM CHL 0.9% 100 ML IV SCH (10:26)
[2017-08-22] MEDS: PANTOPRAZOLE 40 MG/10 ML VIAL IV SCH (10:27)
[2017-08-22] MEDS: ASPirin 81 mg TAB PO SCH (10:27)
[2017-08-22] MEDS: ENOXAPARIN SOD 80 MG/0.8ML SYRINGE SC SCH (10:28)
[2017-08-22] MEDS: METOPROLOL TARTRATE 50 MG TAB PO SCH ×2 (10:29→21:52)
[2017-08-22] MEDS ORDERED: DIGOXIN (250MCG/ML) 2 ML AMPULE IV ONE (10:45)
[2017-08-22] MEDS: AMIODARONE HCL 200 MG TAB PO SCH (11:17)
[2017-08-22] MEDS: LINEZOLID 600MG/300ML 300 ML IV SCH ×2 (11:17→21:52)
[2017-08-22] MEDS ORDERED: FUROSEMIDE 40 MG/4 ML VIAL IV ONE (11:30)
[2017-08-22] MEDS ORDERED: LABETALOL HCL 5 MG/ML ML 20ML VIAL IV ONE (13:30)
[2017-08-22] MEDS ORDERED: ENALAPRILAT 1.25 MG/ML-1ML VIAL IV ONE ×2 (14:45→15:00)
[2017-08-22] MEDS ORDERED: ENALAPRIL MALEATE 2.5 MG TAB PO ONE (14:45)
[2017-08-22] MEDS: SODIUM CHLORIDE 0.9% 1,000 ML IV SCH (21:15)
[2017-08-22] MEDS: INSULIN LANTUS (GLARGINE) 1 /0.01ml (100units/ml) SC SCH (21:53)
[2017-08-22] MEDS ORDERED: ENALAPRIL MALEATE 2.5 MG TAB PO SCH ×2 (22:00)
[2017-08-22] MEDS: ATORVASTATIN 20 MG TAB PO SCH (22:05)
[2017-08-22] MEDS ORDERED: GELATIN 1 SPONGE SIZE 50 TOP ONE (22:28)
[2017-08-23] VITALS (55 sets, daily range): BP systolic 143–204; BP diastolic 72–132
[2017-08-23] MEDS: ACETAMINOPHEN 325 MG TAB PO PRN
[2017-08-23] MEDS: AMIODARONE HCL 900 MG in DEXTROSE 500 ML IV SCH (02:48)
[2017-08-23 03:59] LABS: Basophils # (auto) 0 uL; Basophils % (auto) 0.2 % (0.0-2.0); Eosinophils # (auto) 0.2 uL; Eosinophils % (auto) 0.7 % (0.0-7.0); Hematocrit 36.7 % (36.0-46.0); Hemoglobin 12.1 g/dL (12.2-16.2); Lymphocytes # (auto) 1.7 uL; Lymphocytes % (auto) 7.3 % (10.0-50.0); Mean Corpuscular Hemoglobin 30.9 pg (28.0-32.0); Mean Corpuscular Hgb Conc. 32.9 g/dL (32.0-36.0); Mean Corpuscular Volume 93.7 fL (80.0-100.0); Monocytes % (auto) 8.8 % (0.0-12.0); Platelet Count (auto) 365 10^3/uL (140-450); Red Blood Cells 3.91 10^6/uL (4.0-5.20); Red Cell Distribution Width 12.8 % (11.8-14.3); White Blood Cell 22.9 10^3/uL (4.4-10.8)
[2017-08-23 04:30] LABS: BUN/Creatinine Ratio 17.2; Bilirubin, Total 0.5 mg/dL (0.2-1.0); Calcium 8.1 mg/dL (8.5-10.1); Potassium 3.5 mmol/L (3.5-5.1); Total Protein 6.5 g/dL (6.4-8.2)
[2017-08-23] MEDS: InsuLIN REG 1unit/0.01ml Soln (100units/ml) SC SCH ×5 (05:31→23:58)
[2017-08-23] MEDS: PIPERACILLIN-TAZOB 3.375GM 100 ML IV SCH ×5 (05:31→23:51)
[2017-08-23] MEDS: ACCU-CHEK COMFORT CURVE STRIP VI SCH ×5 (05:32→23:51)
[2017-08-23] MEDS: METOPROLOL TARTRATE 1MG/1ML-5ML VIAL IV PRN ×3 (06:04→18:15)
[2017-08-23] MEDS ORDERED: IODIXANOL 320MG/ML 100ML BTL IV ONE (06:19)
[2017-08-23] MEDS ORDERED: cloNIDine 0.2 mg/24hr 7DAY PATCH TD SCH (08:30)
[2017-08-23] MEDS ORDERED: POTASSIUM CHL 10% (20 MEQ/15ML) 15ml ORAL SOLN GT ONE (08:45)
[2017-08-23] MEDS ORDERED: FUROSEMIDE 40 MG/4 ML VIAL IV ONE (08:45)
[2017-08-23] MEDS: ASPirin 81 mg TAB PO SCH (10:00)
[2017-08-23] MEDS: AMIODARONE HCL 200 MG TAB PO SCH (10:20)
[2017-08-23] MEDS: METOPROLOL TARTRATE 50 MG TAB PO SCH ×2 (10:20→21:55)
[2017-08-23] MEDS: MICAFUNGIN SODIUM 100 MG in SODIUM CHL 0.9% 100 ML IV SCH (10:20)
[2017-08-23] MEDS: PANTOPRAZOLE 40 MG/10 ML VIAL IV SCH (10:20)
[2017-08-23] MEDS: ENALAPRIL MALEATE 10 MG TAB PO SCH ×2 (10:20→21:54)
[2017-08-23] MEDS: MIDAZOLAM DRIP 50 mg/50mL 50 ML IV SCH ×2 (11:05→20:00)
[2017-08-23] MEDS: LINEZOLID 600MG/300ML 300 ML IV SCH ×2 (11:33→21:55)
[2017-08-23] MEDS: SODIUM CHLORIDE 0.9% 1,000 ML IV SCH (11:33)
[2017-08-23] MEDS: fentaNYL Drip 2500mCg/250mlNS 250 ML IV SCH (15:19)
[2017-08-23] MEDS: hydrALAZINE HCL 20 MG/ML VL IV SCH ×2 (16:25→23:51)
[2017-08-23] MEDS ORDERED: FUROSEMIDE 40 MG/4 ML VIAL ONE (19:50)
[2017-08-23] MEDS ORDERED: FUROSEMIDE 40 MG/4 ML VIAL IV SCH (21:00)
[2017-08-23] MEDS: INSULIN LANTUS (GLARGINE) 1 /0.01ml (100units/ml) SC SCH (21:51)
[2017-08-23] MEDS: ATORVASTATIN 20 MG TAB PO SCH (21:54)
[2017-08-24] VITALS (40 sets, daily range): BP systolic 97–154; BP diastolic 61–90
[2017-08-24] MEDS: SODIUM CHLORIDE 0.9% 1,000 ML IV SCH ×2 (01:37→16:09)
[2017-08-24] MEDS: AMIODARONE HCL 900 MG in DEXTROSE 500 ML IV SCH (01:37)
[2017-08-24] MEDS: ACCU-CHEK COMFORT CURVE STRIP VI SCH ×3 (05:34→18:00)
[2017-08-24] MEDS: InsuLIN REG 1unit/0.01ml Soln (100units/ml) SC SCH ×3 (06:25→18:30)
[2017-08-24] MEDS: PIPERACILLIN-TAZOB 3.375GM 100 ML IV SCH ×3 (06:25→18:00)
[2017-08-24] MEDS: hydrALAZINE HCL 20 MG/ML VL IV SCH ×4 (06:43→18:30)
[2017-08-24] MEDS: ASPirin 81 mg TAB PO SCH (10:00)
[2017-08-24] MEDS: MICAFUNGIN SODIUM 100 MG in SODIUM CHL 0.9% 100 ML IV SCH (10:00)
[2017-08-24] MEDS: PANTOPRAZOLE 40 MG/10 ML VIAL IV SCH (10:25)
[2017-08-24] MEDS: METOPROLOL TARTRATE 50 MG TAB PO SCH ×2 (10:25→22:00)
[2017-08-24] MEDS: ENALAPRIL MALEATE 10 MG TAB PO SCH ×2 (10:26→22:25)
[2017-08-24] MEDS: AMIODARONE HCL 200 MG TAB PO SCH (10:26)
[2017-08-24] MEDS: LINEZOLID 600MG/300ML 300 ML IV SCH ×2 (10:26→22:22)
[2017-08-24] MEDS ORDERED: MAGNESIUM SULFATE 1GM/100ML 100 ML IV SCH (12:00)
[2017-08-24] MEDS: fentaNYL Drip 2500mCg/250mlNS 250 ML IV SCH (15:19)
[2017-08-24] MEDS: MIDAZOLAM DRIP 50 mg/50mL 50 ML IV SCH (19:08)
[2017-08-24] MEDS: INSULIN LANTUS (GLARGINE) 1 /0.01ml (100units/ml) SC SCH (22:21)
[2017-08-24] MEDS: ATORVASTATIN 20 MG TAB PO SCH (22:22)
[2017-08-25] VITALS (10 sets, daily range): BP systolic 114–153; BP diastolic 61–99
[2017-08-25] MEDS: ACCU-CHEK COMFORT CURVE STRIP VI SCH ×2 (01:05→06:00)
[2017-08-25] MEDS: hydrALAZINE HCL 20 MG/ML VL IV SCH ×2 (01:05→06:00)
[2017-08-25] MEDS: PIPERACILLIN-TAZOB 3.375GM 100 ML IV SCH ×2 (01:05→06:00)
[2017-08-25] MEDS: InsuLIN REG 1unit/0.01ml Soln (100units/ml) SC SCH ×2 (01:16→06:00)
[2017-08-25] MEDS: SODIUM CHLORIDE 0.9% 1,000 ML IV SCH (06:27)
[2017-08-25] MEDS: MICAFUNGIN SODIUM 100 MG in SODIUM CHL 0.9% 100 ML IV SCH (09:45)
[2017-08-25] MEDS ORDERED: ONDANSETRON HCL 4 MG/2 ML VIAL IV PRN (10:30)
[2017-08-25] MEDS ORDERED: NITROGLYCERIN 0.4 MG SL TAB SL PRN (10:30)
[2017-08-25] MEDS ORDERED: ACETAMINOPHEN 325 MG TAB PO PRN (10:30)
[2017-08-25] MEDS ORDERED: ALBUTEROL SULF 2.5 MG/0.5ML(0.5%) NEB SOLN NEB PRN (10:30)
[2017-08-25] MEDS ORDERED: MORPHINE SULF(PF) 0.5MG/ML 10ML VIAL IV PRN (10:30)
[2017-08-25] MEDS ORDERED: MORPHINE SULF INJ 2 MG/ML SYRINGE 1ML IV PRN ×2 (10:45→15:00)
[2017-08-25] MEDS ORDERED: LORazepam 2MG/ML-1ML VIAL IV PRN (10:45)
[2017-08-25] MEDS ORDERED: PIPERACILLIN-TAZOB 3.375GM 100 ML IV SCH (12:00)
[2017-08-25] MEDS ORDERED: INSULIN LANTUS (GLARGINE) 1 /0.01ml (100units/ml) SC SCH (22:00)
[2017-08-26] MEDS ORDERED: ASPirin 81 mg TAB PO SCH (10:00)
[2017-08-26] MEDS ORDERED: PANTOPRAZOLE 40 MG/10 ML VIAL IV SCH (10:00)
== END 2017-08-25 15:08 | disposition expired | DRG 870 ==
LOC: EDBD 18:36 → ER 18:36 → TELE 18:37 → ICU WEST 08-16 19:43 → DOU IN ICU 08-23 14:43
PROVIDERS: ADMIT Nurse Practitioner; ATTEND Internal Medicine
PROC: 5A2204Z Restoration of Cardiac Rhythm, Single (ICD-10-PCS; 2017-08-12)
PROC: 5A1955Z Respiratory Ventilation, Greater than 96 Consecutive Hours (ICD-10-PCS; principal; 2017-08-13)
PROC: 0BH17EZ Insertion of Endotracheal Airway into Trachea, Via Natural or Artificial Opening (ICD-10-PCS; 2017-08-13)
PROC: 02HV33Z Insertion of Infusion Device into Superior Vena Cava, Percutaneous Approach (ICD-10-PCS; 2017-08-16)
PROC: 5A09357 Assistance with Respiratory Ventilation, Less than 24 Consecutive Hours, Continuous Positive Airway Pressure (ICD-10-PCS; 2017-08-23)
PROC: 5A09357 Assistance with Respiratory Ventilation, Less than 24 Consecutive Hours, Continuous Positive Airway Pressure (ICD-10-PCS; 2017-08-24)
PROC: 5A09357 Assistance with Respiratory Ventilation, Less than 24 Consecutive Hours, Continuous Positive Airway Pressure (ICD-10-PCS; 2017-08-25)
DX: A41.9 Sepsis, unspecified organism (principal); J96.00 Acute respiratory failure, unspecified whether with hypoxia or hypercapnia; I21.4 Non-ST elevation (NSTEMI) myocardial infarction; J69.0 Pneumonitis due to inhalation of food and vomit; R65.21 Severe sepsis with septic shock; I63.511 Cerebral infarction due to unspecified occlusion or stenosis of right middle cerebral artery; I50.43 Acute on chronic combined systolic (congestive) and diastolic (congestive) heart failure; I61.9 Nontraumatic intracerebral hemorrhage, unspecified; I47.2 Ventricular tachycardia; G81.94 Hemiplegia, unspecified affecting left nondominant side; I13.0 Hypertensive heart and chronic kidney disease with heart failure and stage 1 through stage 4 chronic kidney disease, or unspecified chronic kidney disease; D68.69 Other thrombophilia; E44.0 Moderate protein-calorie malnutrition; I42.9 Cardiomyopathy, unspecified; S27.329A Contusion of lung, unspecified, initial encounter; N18.3 Chronic kidney disease, stage 3 (moderate); E11.22 Type 2 diabetes mellitus with diabetic chronic kidney disease; D25.9 Leiomyoma of uterus, unspecified; E03.9 Hypothyroidism, unspecified; E11.65 Type 2 diabetes mellitus with hyperglycemia; G93.89 Other specified disorders of brain; H53.462 Homonymous bilateral field defects, left side; I48.0 Paroxysmal atrial fibrillation; I67.2 Cerebral atherosclerosis; Z51.5 Encounter for palliative care; Z66 Do not resuscitate; E66.9 Obesity, unspecified; I25.10 Atherosclerotic heart disease of native coronary artery without angina pectoris; I25.2 Old myocardial infarction; Y92.410 Unspecified street and highway as the place of occurrence of the external cause; V89.2XXA Person injured in unspecified motor-vehicle accident, traffic, initial encounter; Z79.01 Long term (current) use of anticoagulants; Z79.4 Long term (current) use of insulin; Z79.82 Long term (current) use of aspirin; Z79.899 Other long term (current) drug therapy; Z82.49 Family history of ischemic heart disease and other diseases of the circulatory system; Z86.79 Personal history of other diseases of the circulatory system; Z91.19 Patient's noncompliance with other medical treatment and regimen; Z88.5 Allergy status to narcotic agent; Z68.27 Body mass index [BMI] 27.0-27.9, adult
CPT/HCPCS: 31500; 31720; 36415; 36600; 51702; 70450; 70460; 70491; 71045; 71250; 71260; 74177; 80048; 80053; 80162; 80202; 81001; 82805; 82962; 83036; 83605; 83735; 83880; 84132; 84484; 85007; 85014; 85018; 85025; 85027; 85379; 85610; 85730; 87040; 87070; 87081; 87086; 87205; 92960; 93005; 93306; 94002; 94003; 94640; 94660; 94761; 96365; 96367; 96375; 99291; 99292; C9113; J0330; J1815; J2248; J2250; J2543; J3490; J7060; Q9967